=== PATIENT | female | born 1990 | race Two or more races ===

== ENCOUNTER 2016-07-04 20:21 | Emergency (ER) | payer OTHER ==
[~2016-07-04] VITALS: Ht 162.6 cm; Wt 56.7 kg
[2016-07-04] MEDS ORDERED: OLANZAPINE 10 MG VIAL IM ONE (21:00)
[2016-07-04 21:16] LABS: BASOPHILS % (AUTO) 0.3 % (0.0-2.0); DIFF TOTAL % 100 %; EOSINOPHILS # (AUTO) 0.1 /CMM (0.0-0.7); EOSINOPHILS % (AUTO) 0.9 % (0.0-6.0); HEMATOCRIT 41 % (33-45); HEMOGLOBIN 13.8 g/dL (11.5-14.8); LYMPHOCYTES # (AUTO) 2.2 /CMM (0.8-4.8); LYMPHOCYTES % (AUTO) 26.2 % (20.0-44.0); MEAN CORPUSCULAR HEMOGLOBIN 27 PG (26.0-33.0); MEAN CORPUSCULAR HGB CONC 34 g/dl (31.0-36.0); MEAN CORPUSCULAR VOLUME 81 fL (82-100); MONOCYTES # (AUTO) 0.8 /CMM (0.1-1.30); MONOCYTES % (AUTO) 9.6 % (2.0-12.0); NEUTROPHILS # (AUTO) 5.5 /CMM (1.8-8.9); PLATELET COUNT (AUTO) 370 /CMM (150-450); RED BLOOD CELL COUNT(AUTO) 5.09 MIL/uL (4.0-5.2); WHITE BLOOD COUNT (AUTO) 8.6 K/uL (4.3-11.0)
[2016-07-04 21:26] LABS: ANION GAP 12 (5-14); CALCIUM, SERUM 9.6 mg/dL (8.5-10.1); CARBON DIOXIDE 29 mmol/L (21-32); CHLORIDE 105 mmol/L (98-107); GFR 67 mL/min (>60); GLUCOSE 125 mg/dL (74-106); POTASSIUM 4.2 mmol/L (3.5-5.1); SODIUM SERUM 142 mmol/L (136-145); UREA NITROGEN, BLOOD 23 mg/dL (7-18)
[2016-07-04 22:41] LABS: CANNABINOID, URINE NEGATIVE (NEGATIVE); PHENCYCLIDINE SCREEN,URINE NEGATIVE (NEGATIVE)
[2016-07-05] MEDS ORDERED: OLANZAPINE 5 MG/TAB.RAPDIS ONE (00:47)
[2016-07-05] MEDS ORDERED: OLANZAPINE 5 MG TABLET PO ONE (01:00)
[2016-07-05 01:03] VITALS: BP 118/69
== END 2016-07-05 01:05 | disposition home or self-care (01) ==
LOC: ER 20:23
DX: F23 Brief psychotic disorder (principal); F43.10 Post-traumatic stress disorder, unspecified
CPT/HCPCS: 36415; 80048-TC; 80305; 84703-TC; 85025-TC; G0480

== ENCOUNTER 2016-11-13 16:38 | Emergency (ER) | payer OTHER ==
[~2016-11-13] VITALS: Ht 162.6 cm; Wt 59.0 kg
--- NOTE | 2016-11-13 16:42 | NUR ---
kayla ramey [phone]
--- NOTE | 2016-11-13 16:44 | NUR ---
PT BIB FROM [place] STREETS. PER REPORT, PT WAS NOTED W/ BIZZARE BEHAVIOR AND TAKING HER CLOTHES OFF. UPON ARRIVAL PT IS VERBALLY NON RESPONSIVE. APPEARS CATATONIC. PLACED ON MONITOR. AWAITING MD DALE.
[2016-11-13] MEDS ORDERED: LORAZEPAM INJ 2 MG/ML VIAL IM ONE (17:00)
[2016-11-13] MEDS ORDERED: ZIPRASIDONE MESYLATE 20 MG/VIAL VIAL IM ONE ×2 (17:00→17:02)
[2016-11-13] MEDS ORDERED: IV NS 0.9% 1,000 ML BAG IV ONE (17:00)
--- NOTE | 2016-11-13 17:00 | NUR ---
DR VELEZ AT BEDSIDE FOR EVAL.
[2016-11-13] MEDS ORDERED: LORAZEPAM INJ 2 MG/ML VIAL ONE (17:02)
[2016-11-13] MEDS ORDERED: WATER FOR INJECTION,STERILE 10 ML ONE (17:06)
[2016-11-13] MEDS ORDERED: IV NS 0.9% 1,000 ML ONE (17:07)
[2016-11-13] MEDS ORDERED: IV SET PRIMARY 1 EA INFUS.SET MC ONE (17:07)
--- NOTE | 2016-11-13 17:18 | NUR ---
IV LINE STARTED BLOOD DRAWN AND SENT TO LAB.
[2016-11-13 17:24] LABS: BASOPHILS % (AUTO) 0.6 % (0.0-2.0); EOSINOPHILS # (AUTO) 0.1 /CMM (0.0-0.7); EOSINOPHILS % (AUTO) 0.8 % (0.0-6.0); HEMATOCRIT 42 % (33-45); HEMOGLOBIN 13.4 g/dL (11.5-14.8); LYMPHOCYTES # (AUTO) 1.7 /CMM (0.8-4.8); LYMPHOCYTES % (AUTO) 20.3 % (20.0-44.0); MEAN CORPUSCULAR HEMOGLOBIN 26 PG (26.0-33.0); MEAN CORPUSCULAR HGB CONC 32 g/dl (31.0-36.0); MEAN CORPUSCULAR VOLUME 81 fL (82-100); MONOCYTES # (AUTO) 0.7 /CMM (0.1-1.30); MONOCYTES % (AUTO) 8.8 % (2.0-12.0); NEUTROPHILS # (AUTO) 5.8 /CMM (1.8-8.9); NEUTROPHILS % (AUTO) 69.5 % (43.0-81.0); PLATELET COUNT (AUTO) 336 /CMM (150-450); RDW COEFFICIENT OF VARIATION 14.7 (11.5-15.0); RED BLOOD CELL COUNT(AUTO) 5.14 MIL/uL (4.0-5.2); WHITE BLOOD COUNT (AUTO) 8.3 K/uL (4.3-11.0)
[2016-11-13 17:38] LABS: ACETAMINOPHEN < 2 ug/ml (10-30); ALANINE AMINOTRANSFERASE 11 U/L (12-78); ALBUMIN 4.5 g/dL (3.4-5.0); ALCOHOL, BLOOD < 3 mg/dL (0-0); ALKALINE PHOSPHATASE 52 U/L (46-116); ASPARTATE AMINOTRANSFERASE 18 U/L (15-37); BILIRUBIN,DIRECT 0.1 mg/dL (0.0-0.2); BILIRUBIN,TOTAL 0.5 mg/dL (0.2-1.0); CALCIUM, SERUM 9.7 mg/dL (8.5-10.1); CARBON DIOXIDE 28 mmol/L (21-32); CHLORIDE 104 mmol/L (98-107); CREATININE 0.9 mg/dL (0.6-1.3); GLUCOSE 103 mg/dL (74-106); POTASSIUM 4.5 mmol/L (3.5-5.1); SALICYLATE 0.6 mg/dL (2.8-20.0); SODIUM SERUM 139 mmol/L (136-145); TOTAL PROTEIN, SERUM 8.9 g/dL (6.4-8.2); UREA NITROGEN, BLOOD 14 mg/dL (7-18)
[2016-11-13 17:46] LABS: APPEARANCE,URINE Clear (CLEAR); BILIRUBIN,URINE Negative (NEGATIVE); BLOOD, URINE Negative Ery/uL (NEGATIVE); COLOR,URINE Yellow (YELLOW); KETONES,URINE Negative (NEGATIVE); LEUKOCYTE ESTERASE ,URINE Negative (NEGATIVE); NITRITE, URINE Negative (NEGATIVE); PROTEIN,URINE Negative (NEGATIVE); UGLUCOSE Negative (NEGATIVE); UROBILINOGEN,URINE 0.2 EU/dL (0.2)
[2016-11-13 17:50] LABS: PREGNANCY TEST URINE QUAL NEGATIVE (NEGATIVE)
--- NOTE | 2016-11-13 19:22 | NUR ---
PT SLEEPING. ON MONITOR W/ STABLE VITALS.
--- NOTE | 2016-11-13 20:53 | NUR ---
CALLED [facility] AND IMFORMED THAT PT IS MEDICALLY CLEARED AND WILL BE SENT HOME. ROOM MATE INSISTING THAT PT IS NOT STABLE TO BE DISCHARGE AND IS REFUSING TO TRADER FIXED INCOME THE PT. DR VELEZ MADE AWARE.
--- NOTE | 2016-11-13 23:22 | NUR ---
PT IS AWAKE. AMBULATORY W/ STEADY GAIT. VERBALLY RESPONSIVE AND STATES WANT TO GO HOME. PT IS MEDICALLY CLEARED. IVHL D/C'D. D/C IN STABLE CONDITION.
[2016-11-13 23:24] VITALS: BP 132/84
== END 2016-11-13 23:25 | disposition home or self-care (01) ==
LOC: ER 16:41
DX: F23 Brief psychotic disorder (principal); F19.10 Other psychoactive substance abuse, uncomplicated; F20.9 Schizophrenia, unspecified; F43.10 Post-traumatic stress disorder, unspecified
CPT/HCPCS: 36415; 80048; 80076; 80305; 80329; 81001; 84703; 85025; 93005; 96372 ×2; 99285; A4606; G0480 ×2; J2060; J3486; J7030; Z7610; 81000-TC